=== PATIENT | male | born 1995 | race Caucasian/White ===

== ENCOUNTER 2016-07-19 08:00 | Outpatient (CLI) | payer MEDICAID | END 2016-07-19 08:01 | disposition home or self-care (01) | DX: D52.9 Folate deficiency anemia, unspecified (principal); I10 Essential (primary) hypertension; E11.9 Type 2 diabetes mellitus without complications ==

== ENCOUNTER 2016-12-05 15:18 | Outpatient (CLI) | payer MEDICAID | END 2016-12-05 15:19 | disposition home or self-care (01) | DX: E11.9 Type 2 diabetes mellitus without complications (principal); D53.9 Nutritional anemia, unspecified ==

== ENCOUNTER 2017-06-13 08:00 | Outpatient (CLI) | payer MEDICAID ==
[2017-06-13 13:29] LABS: CALCIUM 9.6 mg/dL (8.5-10.3); CREATININE 0.8 mg/dL (0.6-1.2)
[2017-06-13 13:39] LABS: HEMOGLOBIN A1C 0.95 g/dL
[2017-06-13 13:45] LABS: BASOPHILS % (AUTO) 0.6 %; EOSINOPHILS # (AUTO) 0.1 10^3/uL (0.0-0.7); EOSINOPHILS % (AUTO) 1.5 %; HCT - HEMATOCRIT 38.4 % (42.0-52.0); HGB - HEMOGLOBIN 13.4 g/dL (14.0-18.0); LYMPHOCYTES # (AUTO) 1.9 10^3/uL (1.5-3.5); LYMPHOCYTES % (AUTO) 26.1 %; MEAN CORPUSCULAR HEMOGLOBIN 32.6 pg (27.0-31.0); MEAN CORPUSCULAR HGB CONC 34.9 g/dL (32.0-36.0); MEAN CORPUSCULAR VOLUME 93.4 fL (80.0-94.0); MEAN PLATELET VOLUME 9.3 fL (7.4-11.4); MONOCYTES # (AUTO) 0.4 10^3/uL (0.0-1.0); MONOCYTES % (AUTO) 6.2 %; NEUTROPHILS # (AUTO) 4.7 10^3/uL (1.5-6.6); NEUTROPHILS % (AUTO) 65.6 %; RED BLOOD COUNT 4.12 10^6/uL (4.70-6.10); RED CELL DISTRIBUTION WIDTH 12.9 % (12.0-15.0); UNCORRECTED WHITE BLOOD COUNT 7.2 x10^3/uL; WHITE BLOOD COUNT 7.2 x10^3/uL (4.8-10.8)
== END 2017-06-13 08:01 | disposition home or self-care (01) ==
LOC: LAB.N 08:00
PROVIDERS: ATTEND Family Medicine
DX: E11.9 Type 2 diabetes mellitus without complications (principal); D52.9 Folate deficiency anemia, unspecified
CPT/HCPCS: 36415; 80048; 82746; 83036; 85025

== ENCOUNTER 2018-09-01 15:34 | Outpatient (CLI) | payer MEDICAID ==
[2018-09-01 18:51] LABS: BASOPHILS % (AUTO) 0.3 %; EOSINOPHILS # (AUTO) 0.1 10^3/uL (0.0-0.7); EOSINOPHILS % (AUTO) 1.3 %; HGB - HEMOGLOBIN 13.6 g/dL (14.0-18.0); LYMPHOCYTES # (AUTO) 1.9 10^3/uL (1.5-3.5); LYMPHOCYTES % (AUTO) 22.8 %; MEAN CORPUSCULAR HEMOGLOBIN 31.4 pg (27.0-31.0); MEAN CORPUSCULAR HGB CONC 33.3 g/dL (32.0-36.0); MEAN CORPUSCULAR VOLUME 94.4 fL (80.0-94.0); MEAN PLATELET VOLUME 8.6 fL (7.4-11.4); MONOCYTES # (AUTO) 0.5 10^3/uL (0.0-1.0); MONOCYTES % (AUTO) 5.8 %; NEUTROPHILS # (AUTO) 5.7 10^3/uL (1.5-6.6); NEUTROPHILS % (AUTO) 69.8 %; PLT - PLATELET COUNT 303 10^3/uL (130-450); RED BLOOD COUNT 4.33 10^6/uL (4.70-6.10); RED CELL DISTRIBUTION WIDTH 12.6 % (12.0-15.0); WHITE BLOOD COUNT 8.2 x10^3/uL (4.8-10.8)
[2018-09-01 19:00] LABS: CREATININE 0.6 mg/dL (0.6-1.2)
[2018-09-01 20:43] LABS: HB2 TOTAL 15.1 g/dL; HEMOGLOBIN A1C 1.04 g/dL; HEMOGLOBIN A1C % 8.5 % (4.6-6.2)
== END 2018-09-01 23:59 | disposition home or self-care (01) ==
LOC: LAB.N 15:34
PROVIDERS: ATTEND Physician Assistant Medical
DX: E11.9 Type 2 diabetes mellitus without complications (principal); Z00.00 Encounter for general adult medical examination without abnormal findings; I10 Essential (primary) hypertension
CPT/HCPCS: 36415; 80048; 83036; 85025

== ENCOUNTER 2019-07-08 13:31 | Outpatient (CLI) | payer MEDICAID ==
[2019-07-08 19:09] LABS: HB2 TOTAL 13.7 g/dL; HEMOGLOBIN A1C 0.95 g/dL; HEMOGLOBIN A1C % 8.5 % (4.6-6.2)
== END 2019-07-08 23:59 | disposition home or self-care (01) ==
LOC: LAB.N 13:31
PROVIDERS: ATTEND Physician Assistant Medical
DX: E11.9 Type 2 diabetes mellitus without complications (principal)
CPT/HCPCS: 36415; 83036

== ENCOUNTER 2019-11-08 04:18 | Outpatient (CLI) | payer MEDICAID | END 2019-11-08 04:19 | disposition critical access hospital (66) | LOC: EMS 04:18 | PROVIDERS: ATTEND Surgery | DX: R07.89 Other chest pain (principal); R00.2 Palpitations; R20.2 Paresthesia of skin; R06.4 Hyperventilation | CPT/HCPCS: A0425; A0429 ==

== ENCOUNTER 2019-11-08 04:35 | Emergency (ER) | payer MEDICAID ==
[2019-11-08 04:47] VITALS: BP 155/117
[2019-11-08] MEDS ORDERED: LORazepam 2 MG/ML VIAL IM STA (05:07)
--- NOTE | 2019-11-08 05:18 | ED Physician Documentation ---
History of Present Illness - Stated complaint Stated Complaint: PANIC ATTACK - Chief complaint Chief Complaint: MHE - History obtained from History obtained from: Patient - History of Present Illness Timing: Today - Additonal information Additional information: 24-year-old male with history of type 1 diabetes has developed anxiety acutely related to an emotional event this morning when the bed had to be called to his home to put his dog down. He has a 12-year-old Rottweiler mastiff mix that has become ill over the past several months and this evening after vomiting and defecating blood the vet came to their home and assisted with a peaceful passing. The patient became excessively emotional and eventually he called 911. He has come to the emergency department with a myriad of symptoms consistent with a panic attack. Review of Systems Constitutional: denies: Fever Eyes: denies: Decreased vision Ears: reports: Tinnitus/ringing. denies: Ear pain Nose: denies: Congestion Throat: denies: Sore throat Cardiac: reports: Palpitations. denies: Chest pain / pressure Respiratory: reports: Dyspnea. denies: Cough GI: reports: Nausea. denies: Abdominal Pain, Vomiting : denies: Dysuria, Frequency Skin: reports: Other (spot just above the crack of the buttocks that is draining and painful over the past week.) Psychiatric: reports: Anxiety PD PAST MEDICAL HISTORY - Past Medical History Past Medical History: Yes Cardiovascular: Hypertension Respiratory: Asthma Endocrine/Autoimmune: Type 1 diabetes GI: None : None HEENT: None Psych: None Musculoskeletal: Osteoarthritis Derm: None - Past Surgical History Past Surgical History: Yes HEENT: Tonsil/Adenoidectomy - Present Medications Home Medications: Ambulatory Orders Medication Instructions Recorded Confirmed Insulin Glargine [Lantus] 38 units SUBQ DAILY 03/27/14 08/17/14 Insulin Lispro [Humalog] 10 units SUBQ TIDWM 03/27/14 08/17/14 Losartan [Cozaar] 0 mg ORAL DAILY 03/27/14 08/17/14 Metformin HCl [Fortamet] 500 mg ORAL BID 03/27/14 08/17/14 LORazepam [Ativan] 1 mg PO Q6HR PRN #10 tablet 11/08/19 Sulfamethoxazole/Trimethoprim 1 each PO BID #14 tablet 11/08/19 [Sulfamethoxazole-Tmp Ds Tablet] - Allergies Allergies/Adverse Reactions: Allergies Allergy/AdvReac Type Severity Reaction Status Date / Time morphine Allergy Emesis Verified 03/27/14 10:01 phenobarbital Allergy Hives Verified 03/27/14 10:01 - Social History Does the pt smoke?: No Smoking Status: Never smoker Does the pt drink ETOH?: No Does the pt have substance abuse?: No - Immunizations Immunizations are current?: Yes PD ED PE NORMAL - Vitals Vital signs reviewed: Yes (Tachycardic and hypertensive) - General General: Alert and oriented X 3, Well developed/nourished - HEENT HEENT: Atraumatic, PERRL, EOMI - Neck Neck: Supple, no meningeal sign, No bony TTP - Cardiac Cardiac: RRR (At the time of examination.), No murmur - Respiratory Respiratory: No respiratory distress, Clear bilaterally - Abdomen Abdomen: Soft, Non tender, Non distended, No organomegaly - Back Back: No CVA TTP, No spinal TTP - Derm Derm: Normal color, Warm and dry, No rash, Other (Over the distal lumbar spine area centrally is a fleshy fleshy mass that is draining pus. It is now deflated and tender there is not significant surrounding erythema to suggest cellulitis. The area is about 1 cm round and pedunculated.) - Extremities Extremities: No deformity, No edema - Neuro Neuro: Alert and oriented X 3, chlorinator 2-12 intact, No motor deficit, No sensory deficit, Normal speech Eye Opening: Spontaneous Motor: Obeys Commands Verbal: Oriented GCS Score: 15 - Psych Psych: Normal mood, Normal affect Results - Vitals Vitals: Vital Signs - 24 hr 11/08/19 04:45 Temperature 36.6 C Heart Rate 130 H Respiratory 24 Rate Blood Pressure 155/117 H O2 Saturation 100 Oxygen O2 Source Room air PD MEDICAL DECISION MAKING - ED course Complexity details: reviewed old records, reviewed results, re-evaluated patient, considered differential, d/w patient ED course: 24-year-old male with history of type 1 diabetes with a trusted fashion buyer animal that is fallen ill and had to be put down this morning has become overly emotional with a panic attack. He is treated here in the emergency department with Ativan 1 mg IM. I believe the pedunculated cyst the patient has that it is draining is an infected acrochordon and we will place the patient on some Septra. He may need to have this surgically removed when the inflammation is resolved Departure - Departure Disposition: 01 Home, Self Care Clinical Impression: Grieving, Inflamed acrochordon Condition: Stable Instructions: ED Stress React, ED Grief Reaction, ED Staph Infec Abx Tx Only Follow-Up: Jesse Torres PA-C [Primary Care Provider] - Prescriptions: LORazepam [Ativan] 1 mg PO Q6HR PRN #10 tablet PRN Reason: Anxiety Sulfamethoxazole/Trimethoprim [Sulfamethoxazole-Tmp Ds Tablet] 1 each PO BID #14 tablet
== END 2019-11-08 06:16 | disposition home or self-care (01) ==
LOC: EDUNIT# → ED 04:35
DX: F43.21 Adjustment disorder with depressed mood (principal); F41.0 Panic disorder [episodic paroxysmal anxiety]; L08.9 Local infection of the skin and subcutaneous tissue, unspecified; I10 Essential (primary) hypertension; E10.9 Type 1 diabetes mellitus without complications; Z79.4 Long term (current) use of insulin
CPT/HCPCS: 96372; 99283; J2060

== ENCOUNTER 2020-08-07 08:00 | Outpatient (CLI) | payer MEDICAID ==
[2020-08-07 17:57] LABS: BASOPHILS % (AUTO) 0.4 %; EOSINOPHILS # (AUTO) 0.1 10^3/uL (0.0-0.7); EOSINOPHILS % (AUTO) 1.7 %; HGB - HEMOGLOBIN 13.3 g/dL (14.0-18.0); LYMPHOCYTES # (AUTO) 1.9 10^3/uL (1.5-3.5); MEAN CORPUSCULAR HEMOGLOBIN 31.7 pg (27.0-31.0); MEAN PLATELET VOLUME 10.3 fL (7.4-11.4); MONOCYTES # (AUTO) 0.5 10^3/uL (0.0-1.0); MONOCYTES % (AUTO) 7.1 %; NEUTROPHILS # (AUTO) 4.4 10^3/uL (1.5-6.6); NEUTROPHILS % (AUTO) 63.5 %; PLT - PLATELET COUNT 344 10^3/uL (130-450); RED BLOOD COUNT 4.19 10^6/uL (4.70-6.10); RED CELL DISTRIBUTION WIDTH 12.3 % (12.0-15.0); WHITE BLOOD COUNT 6.9 x10^3/uL (4.8-10.8)
[2020-08-07 18:14] LABS: CREATININE,URINE 240.4 mg/dL; MICROALBUM/CREATININE RATIO,UR 2.9 ug/mg (<30.0); MICROALBUMIN,URINE 0.7 mg/dL (0-300.0)
[2020-08-07 18:17] LABS: ALBUMIN/GLOBULIN RATIO 1.1 (1.0-2.2); ALKALINE PHOSPHATASE 84 IU/L (42-121); ALT ALANINE AMINOTRANSFERASE 30 IU/L (10-60); AST ASPARTATE AMINOTRANSFERASE 24 IU/L (10-42); BILIRUBIN,TOTAL 0.9 mg/dL (0.2-1.0); BUN - BLOOD UREA NITROGEN 10 mg/dL (6-20); CALCIUM 9.2 mg/dL (8.5-10.3); CARBON DIOXIDE - CO2 26 mmol/L (21-32); CHLORIDE 101 mmol/L (101-111); CHOL/HDL RATIO 6.5 (<5.0); CHOLESTEROL 274 mg/dL; CREATININE 0.6 mg/dL (0.6-1.2); GLUCOSE 147 mg/dL (70-100); HDL CHOLESTEROL 42 mg/dL; LDL CHOLESTEROL,CALCULATED 213 mg/dL; LDL/HDL RATIO 5.1 (<3.6); TOTAL PROTEIN 7.5 g/dL (6.7-8.2); VLDL CHOLESTEROL 19 mg/dL
[2020-08-07 20:16] LABS: HEMOGLOBIN A1c% 7.6 % (4.27-6.07)
== END 2020-08-07 23:59 | disposition home or self-care (01) ==
LOC: LAB.WCP 08:00
PROVIDERS: ATTEND Physician Assistant Medical
DX: E10.9 Type 1 diabetes mellitus without complications (principal)
CPT/HCPCS: 36415; 80050; 80061; 82043; 82570; 83036; 83721

== ENCOUNTER 2021-07-31 16:39 | Outpatient (CLI) | payer MEDICAID ==
[2021-07-31 21:45] LABS: BASOPHILS % (AUTO) 0.2 %; EOSINOPHILS # (AUTO) 0.1 10^3/uL (0.0-0.7); EOSINOPHILS % (AUTO) 1.3 %; HCT - HEMATOCRIT 42.8 % (42.0-52.0); HGB - HEMOGLOBIN 14.4 g/dL (14.0-18.0); LYMPHOCYTES # (AUTO) 1.9 10^3/uL (1.5-3.5); LYMPHOCYTES % (AUTO) 23.4 %; MEAN CORPUSCULAR HGB CONC 33.6 g/dL (32.0-36.0); MEAN CORPUSCULAR VOLUME 92.2 fL (80.0-94.0); MEAN PLATELET VOLUME 10.1 fL (7.4-11.4); MONOCYTES # (AUTO) 0.5 10^3/uL (0.0-1.0); MONOCYTES % (AUTO) 6.1 %; NEUTROPHILS # (AUTO) 5.6 10^3/uL (1.5-6.6); NEUTROPHILS % (AUTO) 68.8 %; PLT - PLATELET COUNT 328 10^3/uL (130-450); RED BLOOD COUNT 4.64 10^6/uL (4.70-6.10); RED CELL DISTRIBUTION WIDTH 12.2 % (12.0-15.0); WHITE BLOOD COUNT 8.2 x10^3/uL (4.8-10.8)
[2021-07-31 22:03] LABS: % IRON SATURATION 31 % (20-50); ALBUMIN 4.2 g/dL (3.2-5.5); ALBUMIN/GLOBULIN RATIO 1.2 (1.0-2.2); ALKALINE PHOSPHATASE 90 IU/L (42-121); ALT ALANINE AMINOTRANSFERASE 41 IU/L (10-60); AST ASPARTATE AMINOTRANSFERASE 30 IU/L (10-42); BILIRUBIN,TOTAL 0.6 mg/dL (0.2-1.0); BUN - BLOOD UREA NITROGEN 9 mg/dL (6-20); CALCIUM 9.4 mg/dL (8.5-10.3); CARBON DIOXIDE - CO2 29 mmol/L (21-32); CHLORIDE 98 mmol/L (101-111); CHOL/HDL RATIO 6.5 (<5.0); CHOLESTEROL 234 mg/dL; CREATININE 0.7 mg/dL (0.6-1.2); GFR - MDRD 135 (>89); GLUCOSE 261 mg/dL (70-100); HDL CHOLESTEROL 36 mg/dL; IRON 126 ug/dL (45-182); LDL CHOLESTEROL,CALCULATED 165 mg/dL; LDL/HDL RATIO 4.6 (<3.6); POTASSIUM 4.3 mmol/L (3.5-5.0); SODIUM 136 mmol/L (135-145); TOTAL IRON BINDING CAPACITY 402 ug/dL (250-450); TOTAL PROTEIN 7.6 g/dL (6.7-8.2); TRANSFERRIN 287 mg/dL (180-329); TRIGLYCERIDES 166 mg/dL; VLDL CHOLESTEROL 33 mg/dL
[2021-07-31 23:02] LABS: FERRITIN 54.4 ng/mL (23.9-336.2)
[2021-07-31 23:05] LABS: FOLATE 18.1 ng/mL (5.90 - >24.8)
[2021-08-01 10:31] LABS: ESTIMATED AVERAGE GLUCOSE 220 mg/dL (70-100); HEMOGLOBIN A1c% 9.3 % (4.27-6.07)
== END 2021-07-31 16:40 | disposition home or self-care (01) ==
LOC: LAB.N 16:39
PROVIDERS: ATTEND Physician Assistant Medical
DX: E10.9 Type 1 diabetes mellitus without complications (principal); D64.9 Anemia, unspecified
CPT/HCPCS: 36415; 80053; 80061; 82607; 82728; 82746; 82747; 83036; 83540; 83721; 84466; 85025

== ENCOUNTER 2021-12-01 03:50 | Emergency (ER) | payer MEDICAID ==
[2021-12-01] MEDS ORDERED: SODIUM CHLORIDE 0.9% 1,000 ML IV STA (04:36)
[2021-12-01 04:43] LABS: BASOPHILS % (AUTO) 0.4 %; EOSINOPHILS # (AUTO) 0.2 10^3/uL (0.0-0.7); EOSINOPHILS % (AUTO) 2.2 %; HCT - HEMATOCRIT 36.4 % (42.0-52.0); HGB - HEMOGLOBIN 12.5 g/dL (14.0-18.0); LYMPHOCYTES # (AUTO) 3.2 10^3/uL (1.5-3.5); LYMPHOCYTES % (AUTO) 28.8 %; MEAN CORPUSCULAR HEMOGLOBIN 31.8 pg (27.0-31.0); MEAN CORPUSCULAR HGB CONC 34.3 g/dL (32.0-36.0); MEAN CORPUSCULAR VOLUME 92.6 fL (80.0-94.0); MONOCYTES # (AUTO) 0.8 10^3/uL (0.0-1.0); MONOCYTES % (AUTO) 7.3 %; NEUTROPHILS # (AUTO) 6.7 10^3/uL (1.5-6.6); PLT - PLATELET COUNT 321 10^3/uL (130-450); RED BLOOD COUNT 3.93 10^6/uL (4.70-6.10); RED CELL DISTRIBUTION WIDTH 12.3 % (12.0-15.0)
[2021-12-01 04:51] LABS: ALBUMIN 3.8 g/dL (3.2-5.5); ALBUMIN/GLOBULIN RATIO 1.1 (1.0-2.2); BILIRUBIN,TOTAL 0.3 mg/dL (0.2-1.0); CREATININE 0.6 mg/dL (0.6-1.2); POTASSIUM 3.4 mmol/L (3.5-5.0); TOTAL PROTEIN 7.2 g/dL (6.7-8.2)
--- NOTE | 2021-12-01 04:56 | ED Physician Documentation ---
PD HPI ABD PAIN - Stated complaint Stated Complaint: BODY PX - Chief complaint Chief Complaint: Abd Pain - History obtained from History obtained from: Patient - History of Present Illness Timing - onset: How many days ago (3) Timing - duration: Days (3) Timing - details: Gradual onset, Still present Quality: Sharp, Pain Location: RUQ Radiation: Right flank Improved by: Meds Worsened by: Other (nothing) Associated symptoms: No: Fever, Nausea, Vomiting Similar symptoms before: Diagnosis (kidney stone) Recently seen: Not recently seen - Additional information Additional information: Henrry Breen is a 26-year-old male type I diabetic who has had kidney stone previously and he is now developed a pain in the right flank that has responded to Tylenol and Advil. The patient did not take any Tylenol or Advil last night when he went to bed and he awoke early this morning with worsening pain and has come to the emergency department for evaluation. Review of Systems Constitutional: denies: Fever Nose: denies: Rhinorrhea / runny nose, Congestion Throat: denies: Sore throat Respiratory: denies: Cough GI: reports: Abdominal Pain. denies: Nausea, Vomiting : denies: Dysuria, Frequency Skin: denies: Rash Musculoskeletal: reports: Back pain. denies: Neck pain, Extremity pain PD PAST MEDICAL HISTORY - Past Medical History Cardiovascular: Hypertension Respiratory: Asthma Endocrine/Autoimmune: Type 1 diabetes GI: None : None HEENT: None Psych: None Musculoskeletal: Osteoarthritis Derm: None - Past Surgical History Past Surgical History: Yes HEENT: Tonsil/Adenoidectomy - Present Medications Home Medications: Ambulatory Orders Medication Instructions Recorded Confirmed Insulin Glargine [Lantus] 38 units SUBQ DAILY 03/27/14 08/17/14 Insulin Lispro [Humalog] 10 units SUBQ TIDWM 03/27/14 08/17/14 Losartan [Cozaar] 0 mg ORAL DAILY 03/27/14 08/17/14 Metformin HCl [Fortamet] 500 mg ORAL BID 03/27/14 08/17/14 LORazepam [Ativan] 1 mg PO Q6HR PRN #10 tablet 11/08/19 Sulfamethoxazole/Trimethoprim 1 each PO BID #14 tablet 11/08/19 [Sulfamethoxazole-Tmp Ds Tablet] - Allergies Allergies/Adverse Reactions: Allergies Allergy/AdvReac Type Severity Reaction Status Date / Time morphine Allergy Emesis Verified 03/27/14 10:01 phenobarbital Allergy Hives Verified 03/27/14 10:01 - Social History Does the pt smoke?: No Smoking Status: Never smoker Does the pt drink ETOH?: No Does the pt have substance abuse?: No - Immunizations Immunizations are current?: Yes PD ED PE NORMAL - Vitals Vital signs reviewed: Yes (Tachycardic and hypertensive) - General General: Alert and oriented X 3, No acute distress, Well developed/nourished - HEENT HEENT: Atraumatic, PERRL, EOMI - Neck Neck: Supple, no meningeal sign, No bony TTP - Cardiac Cardiac: RRR, No murmur - Respiratory Respiratory: No respiratory distress, Clear bilaterally - Abdomen Abdomen: Normal bowel sounds, Soft, Non tender, Non distended, No organomegaly - Back Back: No CVA TTP, No spinal TTP - Derm Derm: Normal color, Warm and dry, No rash - Extremities Extremities: No deformity, No edema - Neuro Neuro: Alert and oriented X 3, order desk caller 2-12 intact, No motor deficit, No sensory deficit, Normal speech Eye Opening: Spontaneous Motor: Obeys Commands Verbal: Oriented GCS Score: 15 - Psych Psych: Normal mood, Normal affect Results - Vitals Vitals: Vital Signs - 24 hr 12/01/21 12/01/21 12/01/21 03:55 06:10 06:23 Temperature 36.6 C Heart Rate 118 H 92 84 Respiratory 20 22 20 Rate Blood Pressure 135/100 H 174/105 H 187/102 H O2 Saturation 100 96 99 Oxygen O2 Source Room air - Labs Labs: Laboratory Tests 12/01/21 12/01/21 12/01/21 04:15 04:15 05:25 WBC 11.0 H RBC 3.93 L Hgb 12.5 L Hct 36.4 L MCV 92.6 MCH 31.8 H MCHC 34.3 RDW 12.3 Plt Count 321 MPV 10.0 Neut # (Auto) 6.7 H Lymph # (Auto) 3.2 [place] # (Auto) 0.8 Eos # (Auto) 0.2 Baso # (Auto) 0.0 Absolute Nucleated RBC 0.00 Nucleated RBC % 0.0 Sodium 138 Potassium 3.4 L Chloride 103 Carbon Dioxide 22 Anion Gap 13.0 BUN 11 Creatinine 0.6 Estimated GFR (MDRD) 160 Glucose 150 H POC Whole Bld Glucose Calcium 9.0 Total Bilirubin 0.3 AST 36 ALT 40 Alkaline Phosphatase 71 Total Protein 7.2 Albumin 3.8 Globulin 3.4 Albumin/Globulin Ratio 1.1 Lipase 30 Urine Color YELLOW Urine Clarity CLEAR Urine pH 6.0 Ur Specific [place] 1.010 Urine Protein NEGATIVE Urine Glucose (UA) NEGATIVE Urine Ketones NEGATIVE Urine Occult Blood MODERATE H Urine Nitrite NEGATIVE Urine Bilirubin NEGATIVE Urine Urobilinogen 0.2 (NORMAL) Ur Leukocyte Esterase NEGATIVE Urine RBC 6-10 H Urine WBC 0-3 Ur Squamous Epith Cells FEW Squamous Urine Bacteria Rare Ur Microscopic Review INDICATED Urine Culture Comments NOT INDICATED 12/01/21 06:02 WBC RBC Hgb Hct MCV MCH MCHC RDW Plt Count MPV Neut # (Auto) Lymph # (Auto) [place] # (Auto) Eos # (Auto) Baso # (Auto) Absolute Nucleated RBC Nucleated RBC % Sodium Potassium Chloride Carbon Dioxide Anion Gap BUN Creatinine Estimated GFR (MDRD) Glucose POC Whole Bld Glucose 68 L Calcium Total Bilirubin AST ALT Alkaline Phosphatase Total Protein Albumin Globulin Albumin/Globulin Ratio Lipase Urine Color Urine Clarity Urine pH Ur Specific [place] Urine Protein Urine Glucose (UA) Urine Ketones Urine Occult Blood Urine Nitrite Urine Bilirubin Urine Urobilinogen Ur Leukocyte Esterase Urine RBC Urine WBC Ur Squamous Epith Cells Urine Bacteria Ur Microscopic Review Urine Culture Comments - Rads (name of study) CT abdomen pelvis without Radiology: Prelim report reviewed (Impression: 1. 1 mm distal right ureteral calculus with mild right hydro ureteral nephrosis. Nonobstructing left nephrolithiasis.), EMP read indepedently, See rad report Procedures - Bedside sono Bedside sono by EMP: With use bedside ultrasound the right kidney is imaged it is sonographically nontender and there is evidence of obvious hydronephrosis. PD MEDICAL DECISION MAKING - ED course Complexity details: reviewed old records, reviewed results, re-evaluated patient, considered differential, d/w patient ED course: 26-year-old male thought he had a kidney stone and has a kidney stone. The stone is small and should pass without issue. The patient is administered intravenous saline here in the emergency department he did not require pain medication. Departure - Departure Disposition: 01 Home, Self Care Clinical Impression: Ureterolithiasis Instructions: ED Stone Renal W Colic Follow-Up: Laurie Padilla PA-C [Provider Admit Priv/Credential] - Comments: Henrry, today it looks like you have a 1 mm stone that is just ready to pass. Drink extra fluids to encourage it to pass and expect resolution of your pain this week.
[2021-12-01 05:51] LABS: BILIRUBIN,URINE NEGATIVE (NEGATIVE); GLUCOSE, URINE (UA) NEGATIVE (NEGATIVE); KETONES,URINE (UA) NEGATIVE (NEGATIVE); LEUKOCYTE ESTERASE, URINE NEGATIVE (NEGATIVE); NITRITE,URINE NEGATIVE (NEGATIVE); OCCULT BLOOD,URINE MODERATE (NEGATIVE); PROTEIN,URINE NEGATIVE (NEGATIVE); UROBILINOGEN,URINE 0.2 (NORMAL) E.U./dL (NORMAL)
[2021-12-01 05:57] LABS: CLARITY,URINE CLEAR (CLEAR)
[2021-12-01 06:10] LABS: BACTERIA,URINE Rare /HPF (None Seen); SQUAMOUS EPITHELIAL CELL,UR FEW Squamous (<= Few); WBC,URINE 0-3 /HPF (0-3)
[2021-12-01 06:24] VITALS: BP 187/102
--- NOTE | 2021-12-01 08:48 | CT Report ---
PROCEDURE: Abdomen/Pelvis WO INDICATIONS: R flank pain TECHNIQUE: Noncontrast 5 mm thick sections acquired from the diaphragms to the symphysis. 5 mm coronal and sagi ttal reformats were then performed. For radiation dose reduction, the following was used: automated exposure control, adjustment of mA and/or kV according to patient size. COMPARISON: None. FINDINGS: Image quality: Excellent. ABDOMEN: Lung bases: Lung bases are clear. Heart size is normal. Solid organs: Liver and spleen are normal in size. Gallbladder is unremarkable Pancreas is normal in contours. No adrenal nodules. Kidneys are normal in size. There is a punctate calcification with in the distal right ureter approximately 1 cm proximal to the ureterovesicular junction. There is min imal to mild right hydronephrosis and hydroureter. Questionable punctate nonobstructing left renal ca lculus. Peritoneum and bowel: Unenhanced bowel loops demonstrate normal wall thickness and caliber. No free fluid or air. Appendix is normal. Nodes and vessels: No retroperitoneal or mesenteric adenopathy by size criteria. Aorta and inferior vena cava are normal in caliber. Miscellaneous: Trace fat-containing ventral hernia is present. PELVIS: Genitourinary: Bladder wall thickness is normal. Miscellaneous: No inguinal hernias or adenopathy. Bones: No suspicious bony lesions. No vertebral body compression fractures. IMPRESSION: Minimal to mild right hydronephrosis and hydroureter with punctate calcification in the distal right ureter as above. The above findings are concordant with preliminary report. Reviewed by: Karen Carrillo MD on 12/01/2021 8:46 AM PDT Approved by: Karen Carrillo MD on 12/01/2021 8:46 AM PDT Station ID: [id number]
== END 2021-12-01 06:39 | disposition home or self-care (01) ==
LOC: ED 03:50
DX: N13.2 Hydronephrosis with renal and ureteral calculous obstruction (principal); I10 Essential (primary) hypertension; E10.9 Type 1 diabetes mellitus without complications; Z79.4 Long term (current) use of insulin
CPT/HCPCS: 36415; 80053; 81001; 81003; 83690; 85025; 87086; 99284

== ENCOUNTER 2022-03-15 19:53 | Emergency (ER) | payer MEDICAID ==
[2022-03-15] MEDS ORDERED: LIDOCAINE PATCH 5% TOP STA (22:54)
[2022-03-15] MEDS ORDERED: KETOROLAC 60 MG/2 ML VIAL IM STA (22:54)
[2022-03-15] MEDS ORDERED: CYCLOBENZAPRINE 10 MG Prepack 2 PO PRN (22:55)
--- NOTE | 2022-03-15 23:18 | ED Physician Documentation ---
PD HPI BACK PAIN - Stated complaint Stated Complaint: BACK PAIN - Chief complaint Chief Complaint: Back Pain - History obtained from History obtained from: Patient - Additional information Additional information: Patient presenting for evaluation of left-sided lumbar pain for 5 days. The pain is sharp and aching. It is worse with certain movements. Patient reports that he was walking their [place] several days ago when the dog was pulling and believes that this has triggered this episode. He does have a history of back pain related to injuries from playing high school sports. He denies any recent falls. He has been using acetaminophen and ibuprofen with some improvement. He feels the muscle area is tight. He denies any lower extremity pain or tingling, saddle anesthesia, bowel or bladder incontinence. He denies fever, IV drug use, spinal injections. Review of Systems Constitutional: denies: Fever Nose: denies: Congestion Cardiac: denies: Chest pain / pressure Respiratory: denies: Dyspnea GI: denies: Abdominal Pain : denies: Dysuria, Hematuria Musculoskeletal: reports: Back pain. denies: Neck pain Neurologic: denies: Headache, Head injury PD PAST MEDICAL HISTORY - Past Medical History Cardiovascular: Hypertension Respiratory: Asthma Endocrine/Autoimmune: Type 1 diabetes GI: None : None HEENT: None Psych: None Musculoskeletal: Osteoarthritis Derm: None - Past Surgical History Past Surgical History: Yes HEENT: Tonsil/Adenoidectomy - Present Medications Home Medications: Ambulatory Orders Medication Instructions Recorded Confirmed Insulin Glargine [Lantus] 38 units SUBQ DAILY 03/27/14 08/17/14 Insulin Lispro [Humalog] 10 units SUBQ TIDWM 03/27/14 08/17/14 Losartan [Cozaar] 0 mg ORAL DAILY 03/27/14 08/17/14 Metformin HCl [Fortamet] 500 mg ORAL BID 03/27/14 08/17/14 LORazepam [Ativan] 1 mg PO Q6HR PRN #10 tablet 11/08/19 Sulfamethoxazole/Trimethoprim 1 each PO BID #14 tablet 11/08/19 [Sulfamethoxazole-Tmp Ds Tablet] Cyclobenzaprine [Flexeril] 10 mg PO TID PRN #20 tablet 03/15/22 - Allergies Allergies/Adverse Reactions: Allergies Allergy/AdvReac Type Severity Reaction Status Date / Time morphine Allergy Emesis Verified 03/15/22 20:14 phenobarbital Allergy Hives Verified 03/15/22 20:14 - Social History Does the pt smoke?: No Smoking Status: Never smoker Does the pt drink ETOH?: No Does the pt have substance abuse?: No - Immunizations Immunizations are current?: Yes PD ED PE NORMAL - General General: Alert and oriented X 3, No acute distress, Well developed/nourished - HEENT HEENT: Atraumatic - Neck Neck: Supple, no meningeal sign, No bony TTP - Cardiac Cardiac: RRR, No murmur, Strong equal pulses - Respiratory Respiratory: No respiratory distress, Clear bilaterally - Abdomen Abdomen: Normal bowel sounds, Soft, Non tender, Non distended - Back Back: No spinal TTP - Derm Derm: Warm and dry - Extremities Extremities: No edema, Other (Pedal pulses present) - Neuro Neuro: No motor deficit, No sensory deficit PD ED PE EXPANDED - Back Back visual: 1 - tenderness Results - Vitals Vitals: Vital Signs - 24 hr 03/15/22 03/15/22 20:09 23:49 Temperature 36.6 C Heart Rate 88 86 Respiratory 18 18 Rate Blood Pressure 141/100 H 115/86 H O2 Saturation 100 100 Oxygen O2 Source Room air PD MEDICAL DECISION MAKING - ED course Complexity details: re-evaluated patient, d/w patient, d/w family ED course: Patient presenting for evaluation of back pain. No reported trauma other than dog pulling while he was walking it. Has reproducible tenderness on exam. No symptoms to suggest stone or urinary tract infection. No fever and normal neuro exam. Doubt abscess or hematoma. Patient feeling better with medications here. He is ambulatory and comfortable with plan for discharge. Departure - Departure Disposition: 01 Home, Self Care Clinical Impression: Back muscle spasm Condition: Stable Instructions: ED Low Back Pain Injury, ED Spasm Back No Trauma Prescriptions: Cyclobenzaprine [Flexeril] 10 mg PO TID PRN #20 tablet PRN Reason: Spasms Comments: You were evaluated for pain to your back from a recent strain injury. It appears that you have a spasm to the muscles of your back. I have prescribed a medication called Flexeril which should help with this. I would continue with anti-inflammatories such as acetaminophen or ibuprofen as well as lidocaine patches. I have sent your prescription to [facility] in [place]. You may also want to try ice or heat. Please return to the ER if you have any worsening symptoms. Discharge Date/Time: 03/15/22 23:49
[2022-03-15 23:50] VITALS: BP 115/86
== END 2022-03-15 23:49 | disposition home or self-care (01) ==
LOC: ED 19:53
DX: M62.830 Muscle spasm of back (principal); I10 Essential (primary) hypertension; E10.9 Type 1 diabetes mellitus without complications; Z79.4 Long term (current) use of insulin
CPT/HCPCS: 96372; 99282; 99283; A9270

== ENCOUNTER 2022-03-17 01:10 | Emergency (ER) | payer MEDICAID ==
[2022-03-17] MEDS: SODIUM CHLORIDE 0.9% 1,000 ML IV STA (02:03)
[2022-03-17] MEDS: HYDROmorphone 1 MG/ML CARPUJECT IVP STA ×2 (02:03→03:13)
[2022-03-17] MEDS: ONDANSETRON 4 MG/2 ML VIAL IVP STA (02:03)
--- NOTE | 2022-03-17 02:04 | ED Physician Documentation ---
PD HPI BACK PAIN - Stated complaint Stated Complaint: BACK PAIN - Chief complaint Chief Complaint: Back Pain - History obtained from History obtained from: Patient - Additional information Additional information: Patient is a 26-year-old male presenting for evaluation of left flank pain and that is been present for 5 days. It is sharp and aching. He believes it started after he was walking his large dog and it pulled on him. He was seen yesterday in the emergency department for similar symptoms and had improvement with Flexeril and Toradol. He has continued to use acetaminophen and Flexeril with some improvement but this evening the pain worsened and he reported an episode of emesis. He does have a history of kidney stones but feels this is different. The pain does migrate to hisLeft side. He denies dysuria or hematuria. He denies diarrhea or constipation. He denies chest pain or difficulty breathing. No fevers, spinal injections, bladder or bowel incontinence, lower extremity pain. Review of Systems Constitutional: denies: Fever Cardiac: denies: Chest pain / pressure Respiratory: denies: Dyspnea GI: reports: Nausea, Vomiting. denies: Abdominal Pain : denies: Dysuria, Hematuria Musculoskeletal: reports: Back pain Neurologic: denies: Headache PD PAST MEDICAL HISTORY - Past Medical History Cardiovascular: Hypertension Respiratory: Asthma Endocrine/Autoimmune: Type 1 diabetes GI: None : None HEENT: None Psych: None Musculoskeletal: Osteoarthritis Derm: None - Past Surgical History Past Surgical History: Yes HEENT: Tonsil/Adenoidectomy - Present Medications Home Medications: Ambulatory Orders Medication Instructions Recorded Confirmed Insulin Glargine [Lantus] 38 units SUBQ DAILY 03/27/14 03/17/22 Insulin Lispro [Humalog] 10 units SUBQ TIDWM 03/27/14 03/17/22 Cyclobenzaprine [Flexeril] 10 mg PO TID PRN #20 tablet 03/15/22 03/17/22 Escitalopram [Lexapro] 10 mg PO DAILY 03/17/22 03/17/22 Lisinopril [Zestril] 20 mg PO DAILY 03/17/22 03/17/22 Ondansetron Odt [Zofran] 4 mg TL Q6H PRN #10 tablet 03/17/22 Oxycodone HCl/Acetaminophen 1 - 2 each PO Q6H PRN #14 tablet 03/17/22 [Percocet 5-325 mg Tablet] - Allergies Allergies/Adverse Reactions: Allergies Allergy/AdvReac Type Severity Reaction Status Date / Time morphine Allergy Emesis Verified 03/17/22 01:25 phenobarbital Allergy Hives Verified 03/17/22 01:25 - Social History Does the pt smoke?: No Smoking Status: Never smoker Does the pt drink ETOH?: No Does the pt have substance abuse?: No - Immunizations Immunizations are current?: Yes PD ED PE NORMAL - General General: Alert and oriented X 3, No acute distress, Well developed/nourished - HEENT HEENT: Atraumatic, Moist mucous membranes - Neck Neck: Supple, no meningeal sign, No bony TTP - Cardiac Cardiac: RRR, No murmur, Strong equal pulses - Respiratory Respiratory: No respiratory distress, Clear bilaterally - Abdomen Abdomen: Normal bowel sounds, Soft, Non distended, Other (Mild left upper quadrant tenderness no rebound no guarding) - Back Back: No spinal TTP. No: No CVA TTP (Left flank tenderness to palpation) - Derm Derm: Warm and dry - Extremities Extremities: No edema - Neuro Neuro: Alert and oriented X 3, No motor deficit, Normal speech Results - Vitals Vitals: Vital Signs - 24 hr 03/17/22 03/17/22 03/17/22 01:20 02:16 03:50 Temperature 36.4 C L 36.5 C Heart Rate 111 H 76 86 Respiratory 18 16 16 Rate Blood Pressure 162/94 H 131/88 H 140/90 H O2 Saturation 98 100 100 Oxygen O2 Source Room air - Labs Labs: Laboratory Tests 03/17/22 03/17/22 03/17/22 01:57 01:57 01:57 WBC 13.6 H RBC 3.60 L Hgb 11.3 L Hct 34.2 L MCV 95.0 H MCH 31.4 H MCHC 33.0 RDW 12.3 Plt Count 276 MPV 9.1 Neut # (Auto) 11.0 H Lymph # (Auto) 1.6 Eagle # (Auto) 0.8 Eos # (Auto) 0.1 Baso # (Auto) 0.0 Absolute Nucleated RBC 0.00 Nucleated RBC % 0.0 Sodium 138 Potassium 3.9 Chloride 103 Carbon Dioxide 24 Anion Gap 11.0 BUN 14 Creatinine 0.7 Estimated GFR (MDRD) 134 Glucose 164 H Lactic Acid 1.6 Calcium 9.4 Total Bilirubin 0.7 AST 30 ALT 42 Alkaline Phosphatase 85 Total Protein 7.3 Albumin 3.6 Globulin 3.7 Albumin/Globulin Ratio 1.0 Lipase 23 PD MEDICAL DECISION MAKING - ED course Complexity details: reviewed results, re-evaluated patient, d/w patient, d/w family ED course: Patient evaluated for left flank pain. Is slightly tachycardic upon arrival but otherwise reassuring vital signs. Patient does report a mechanism that which could have caused injury but pain has worsened over the last day. He does have a history of stones therefore imaging was obtained and labs. CT is negative for ureter stone. Labs reviewed without significant abnormalities. Patient is feeling better with medication here. No midline tenderness . Normal neuro exam.. No fever. No signs of cellulitis or abscess.Patient is ambulatory and comfortable plan for discharge. Advised on return precautions. Departure - Departure Disposition: Home, Self Care Clinical Impression: Left flank pain Condition: Stable Instructions: ED Flank Pain Uncertain Cause Prescriptions: Oxycodone HCl/Acetaminophen [Percocet 5-325 mg Tablet] 1 - 2 each PO Q6H PRN #14 tablet PRN Reason: pain Ondansetron Odt [Zofran] 4 mg TL Q6H PRN #10 tablet PRN Reason: Nausea / Vomiting Comments: You were evaluated for pain to your left flank. A CT scan Did not show any significant findings. Your labs were overall reassuring. The exact cause of your pain is unclear. It could be related to muscle strain and spasm Given the history you provided. Please continue with the medications you are previously prescribed. I will also send a prescription for a stronger pain medication and nausea medication to [facility] in [place]. I am prescribing a short course of narcotic pain medication for you. These are potentially dangerous and addictive medications that should be used carefully. These medications may constipate you. Take an [id number] stool softener (docusate) twice daily with plenty of water while taking these medications. If you go 24 hours without a bowel movement, take [id number] miralax, per package instructions. Do not drink or drive while taking these medications. If you received narcotic or sedating medications while in the emergency department, do not drive for 24 hours. Store this medication in a safe, secure place and out of reach of children. It is a violation of federal law to give or sell this medication to another person or to use in a manner other than prescribed. The ED will not refill narcotic prescriptions, including prescriptions lost or stolen. To dispose of unwanted medications: 1. [facility] at [address] in [place] has a medication drop box. They accept prescription medications (in pill form) Friday through Friday 9:00 a.m. to 5:00 p.m. 2. [facility] [employer] [facility] accepts prescription medications (in pill form only) for disposal year round. Call for more information. 3. Contact the [facility] for the next [facility] sponsored prescription drug collection event. , [phone], or [phone]; Note that many narcotic pain relievers also contain Tylenol/acetaminophen. Please ensure that your total dose of acetaminophen from all sources does not exceed 3 g (3000 mg) per day.
[2022-03-17 02:08] LABS: BASOPHILS % (AUTO) 0.3 %; EOSINOPHILS # (AUTO) 0.1 10^3/uL (0.0-0.7); HCT - HEMATOCRIT 34.2 % (42.0-52.0); HGB - HEMOGLOBIN 11.3 g/dL (14.0-18.0); LYMPHOCYTES # (AUTO) 1.6 10^3/uL (1.5-3.5); LYMPHOCYTES % (AUTO) 11.4 %; MEAN CORPUSCULAR HEMOGLOBIN 31.4 pg (27.0-31.0); MEAN PLATELET VOLUME 9.1 fL (7.4-11.4); MONOCYTES # (AUTO) 0.8 10^3/uL (0.0-1.0); MONOCYTES % (AUTO) 6.2 %; NEUTROPHILS % (AUTO) 80.8 %; PLT - PLATELET COUNT 276 10^3/uL (130-450); RED CELL DISTRIBUTION WIDTH 12.3 % (12.0-15.0); WHITE BLOOD COUNT 13.6 x10^3/uL (4.8-10.8)
--- NOTE | 2022-03-17 02:11 | CT Report ---
PROCEDURE: Abdomen/Pelvis WO INDICATIONS: L flank pain TECHNIQUE: Noncontrast 5 mm thick sections acquired from the diaphragms to the symphysis. 5 mm coronal and sagi ttal reformats were then performed. For radiation dose reduction, the following was used: automated exposure control, adjustment of mA and/or kV according to patient size. COMPARISON: CT KUB 12/01/2021. FINDINGS: Image quality: Excellent. ABDOMEN: Lung bases: Lung bases are clear. Heart size is normal. Solid organs: Liver and spleen are normal in size. Small splenule. Gallbladder is unremarkable. Orozco creas is normal in contours. No adrenal nodules. Kidneys are normal in size, without hydronephrosis . Punctate nonobstructing left kidney stone is unchanged. The previously seen obstructing calculus at the right UVJ on CT 12/01/2021 is no longer present. Peritoneum and bowel: Unenhanced bowel loops demonstrate normal wall thickness and caliber. The appe ndix is not dilated. No free fluid or air. Nodes and vessels: No retroperitoneal or mesenteric adenopathy by size criteria. Aorta and inferior vena cava are normal in caliber. Miscellaneous: No ventral hernias. PELVIS: Genitourinary: Bladder wall thickness is normal. The bladder stone. Miscellaneous: No inguinal hernias or adenopathy. Bones: No suspicious bony lesions. No vertebral body compression fractures. Lateral L5 pars defect . IMPRESSION: 1. No obstructing calculus demonstrated. No hydronephrosis. 2. Punctate nonobstructing left kidney stone is unchanged. 3. No free fluid. Reviewed by: Vernon Vasquez MD on 03/17/2022 2:09 AM PDT Approved by: Vernon Vasquez MD on 03/17/2022 2:09 AM PDT Station ID: [id number]
[2022-03-17 02:20] LABS: ALBUMIN 3.6 g/dL (3.2-5.5); BILIRUBIN,TOTAL 0.7 mg/dL (0.2-1.0); CALCIUM 9.4 mg/dL (8.5-10.3); CREATININE 0.7 mg/dL (0.6-1.2); POTASSIUM 3.9 mmol/L (3.5-5.0); TOTAL PROTEIN 7.3 g/dL (6.7-8.2)
[2022-03-17] MEDS: oxyCODONE/ACET 5/325 Prepack 4 PO STA (03:12)
[2022-03-17] MEDS: ONDANSETRON ODT 4 MG Prepack 2 TL PRN (03:13)
[2022-03-17] MEDS: KETOROLAC 30 MG/ML VIAL IVP STA (03:13)
[2022-03-17 03:51] VITALS: BP 140/90
== END 2022-03-17 03:57 | disposition home or self-care (01) ==
LOC: ED 01:10
DX: R10.9 Unspecified abdominal pain (principal); I10 Essential (primary) hypertension; E10.9 Type 1 diabetes mellitus without complications; Z79.4 Long term (current) use of insulin
CPT/HCPCS: 36415; 74176; 80053; 83605; 83690; 85025; 96374; 96375; 96376; 99284; J1170

== ENCOUNTER 2022-07-01 10:40 | Outpatient (CLI) | payer MEDICAID ==
[2022-07-01 11:22] LABS: ALBUMIN 4.1 g/dL (3.2-5.5); ALBUMIN/GLOBULIN RATIO 1.1 (1.0-2.2); ALKALINE PHOSPHATASE 80 IU/L (42-121); ALT ALANINE AMINOTRANSFERASE 33 IU/L (10-60); AST ASPARTATE AMINOTRANSFERASE 22 IU/L (10-42); BILIRUBIN,TOTAL 0.8 mg/dL (0.2-1.0); BUN - BLOOD UREA NITROGEN 14 mg/dL (6-20); CALCIUM 9.3 mg/dL (8.5-10.3); CARBON DIOXIDE - CO2 25 mmol/L (21-32); CHLORIDE 99 mmol/L (101-111); CHOLESTEROL 266 mg/dL; CREATININE 0.7 mg/dL (0.6-1.2); GFR - MDRD 134 (>89); GLUCOSE 219 mg/dL (70-100); HDL CHOLESTEROL 38 mg/dL; LDL CHOLESTEROL,CALCULATED 165 mg/dL; LDL/HDL RATIO 4.3 (<3.6); POTASSIUM 4.2 mmol/L (3.5-5.0); SODIUM 133 mmol/L (135-145); TOTAL PROTEIN 7.7 g/dL (6.7-8.2); TRIGLYCERIDES 316 mg/dL; VLDL CHOLESTEROL 63 mg/dL
[2022-07-01 11:40] LABS: ESTIMATED AVERAGE GLUCOSE 194 mg/dL (70-100); HEMOGLOBIN A1c% 8.4 % (4.27-6.07)
== END 2022-07-01 10:41 | disposition home or self-care (01) ==
LOC: LAB 10:40
PROVIDERS: ATTEND Physician Assistant Medical
DX: E10.9 Type 1 diabetes mellitus without complications (principal)
CPT/HCPCS: 36415; 80053; 80061; 83036; 83721

== ENCOUNTER 2023-03-03 12:43 | Outpatient (CLI) | payer MEDICAID ==
[2023-03-03 13:22] LABS: CALCIUM 10.1 mg/dL (8.5-10.3); CREATININE 0.7 mg/dL (0.6-1.3); POTASSIUM 4.2 mmol/L (3.5-4.5)
[2023-03-03 13:30] LABS: ESTIMATED AVERAGE GLUCOSE 171 mg/dL (70-100); HEMOGLOBIN A1c% 7.6 % (4.27-6.07)
--- NOTE | 2023-03-03 16:36 | XRAY Report ---
PROCEDURE: Knee 3 View BILAT INDICATIONS: KNEE PAIN, BILATERAL TECHNIQUE: 3 views of the right and left knee(s) were acquired. COMPARISON: None. FINDINGS: Bones: No acute fracture or dislocation identified. Mild joint space narrowing. Tricompartmental rig ht knee and medial and patellofemoral compartments left knee. Soft tissues: No knee joint effusion. No suspicious soft tissue calcifications . IMPRESSION: No acute bony abnormality. If there remains a high clinical concern for fracture, consider cross-sect ional imaging now. If pain persists, consider repeat x-ray in 10-14 days or cross-sectional imaging. Degenerative changes of both knees. Reviewed by: Jason Archer MD on 03/03/2023 4:35 PM PDT Approved by: Jason Archer MD on 03/03/2023 4:35 PM PDT Station ID: [id number]
== END 2023-03-03 12:44 | disposition home or self-care (01) ==
LOC: DI 12:43
PROVIDERS: ATTEND Physician Assistant Medical
DX: M17.0 Bilateral primary osteoarthritis of knee (principal)
CPT/HCPCS: 36415; 80048; 83036

== ENCOUNTER 2023-06-13 13:58 | Outpatient (CLI) | payer MEDICAID ==
[2023-06-13 17:51] LABS: BASOPHILS % (AUTO) 0.2 %; EOSINOPHILS # (AUTO) 0.1 10^3/uL (0.0-0.7); EOSINOPHILS % (AUTO) 1.6 %; HCT - HEMATOCRIT 40.8 % (42.0-52.0); HGB - HEMOGLOBIN 13.8 g/dL (14.0-18.0); LYMPHOCYTES # (AUTO) 1.8 10^3/uL (1.5-3.5); LYMPHOCYTES % (AUTO) 21.5 %; MEAN CORPUSCULAR HEMOGLOBIN 32.2 pg (27.0-31.0); MEAN CORPUSCULAR HGB CONC 33.8 g/dL (32.0-36.0); MEAN CORPUSCULAR VOLUME 95.3 fL (80.0-94.0); MEAN PLATELET VOLUME 10.6 fL (7.4-11.4); MONOCYTES # (AUTO) 0.5 10^3/uL (0.0-1.0); MONOCYTES % (AUTO) 5.8 %; NEUTROPHILS # (AUTO) 5.9 10^3/uL (1.5-6.6); NEUTROPHILS % (AUTO) 70.7 %; PLT - PLATELET COUNT 300 10^3/uL (130-450); RED BLOOD COUNT 4.28 10^6/uL (4.70-6.10); RED CELL DISTRIBUTION WIDTH 12.4 % (12.0-15.0); WHITE BLOOD COUNT 8.3 x10^3/uL (4.8-10.8)
[2023-06-13 18:46] LABS: ALBUMIN 4.2 g/dL (3.2-5.5); ALBUMIN/GLOBULIN RATIO 1.4 (1.0-2.2); ALKALINE PHOSPHATASE 79 IU/L (42-121); ALT ALANINE AMINOTRANSFERASE 23 IU/L (10-60); AST ASPARTATE AMINOTRANSFERASE 22 IU/L (10-42); BILIRUBIN,TOTAL 0.5 mg/dL (0.2-1.0); BUN - BLOOD UREA NITROGEN 9 mg/dL (6-20); CALCIUM 9.5 mg/dL (8.5-10.3); CARBON DIOXIDE - CO2 26 mmol/L (21-32); CHLORIDE 103 mmol/L (101-111); CHOL/HDL RATIO 6.5 (<5.0); CHOLESTEROL 266 mg/dL; CREATININE 0.6 mg/dL (0.6-1.3); GFR - MDRD 159 (>89); GLUCOSE 139 mg/dL (74-104); HDL CHOLESTEROL 41 mg/dL; LDL CHOLESTEROL,CALCULATED 184 mg/dL; LDL/HDL RATIO 4.5 (<3.6); POTASSIUM 4.1 mmol/L (3.5-4.5); SODIUM 137 mmol/L (135-145); TOTAL PROTEIN 7.1 g/dL (6.4-8.9); TRIGLYCERIDES 207 mg/dL (48-352); VLDL CHOLESTEROL 41 mg/dL
[2023-06-13 21:17] LABS: ESTIMATED AVERAGE GLUCOSE 186 mg/dL (70-100); HEMOGLOBIN A1c% 8.1 % (4.27-6.07)
== END 2023-06-13 13:59 | disposition home or self-care (01) ==
LOC: LAB.N 13:58
PROVIDERS: ATTEND Physician Assistant Medical
DX: D52.9 Folate deficiency anemia, unspecified (principal); E78.5 Hyperlipidemia, unspecified; E10.9 Type 1 diabetes mellitus without complications
CPT/HCPCS: 36415; 80053; 80061; 82746; 82747; 83036; 83721; 85014; 85025

== ENCOUNTER 2023-12-12 12:40 | Outpatient (CLI) | payer MEDICAID ==
[2023-12-12 18:15] LABS: ALBUMIN 4.1 g/dL (3.2-5.5); ALBUMIN/GLOBULIN RATIO 1.4 (1.0-2.2); ALKALINE PHOSPHATASE 87 IU/L (42-121); ALT ALANINE AMINOTRANSFERASE 31 IU/L (10-60); AST ASPARTATE AMINOTRANSFERASE 29 IU/L (10-42); BILIRUBIN,TOTAL 0.5 mg/dL (0.2-1.0); BUN - BLOOD UREA NITROGEN 11 mg/dL (6-20); CALCIUM 9.7 mg/dL (8.5-10.3); CARBON DIOXIDE - CO2 27 mmol/L (21-32); CHLORIDE 101 mmol/L (101-111); CHOL/HDL RATIO 6.4 (<5.0); CHOLESTEROL 223 mg/dL; CREATININE 0.7 mg/dL (0.6-1.3); GFR - MDRD 132 (>89); GLUCOSE 155 mg/dL (74-104); HDL CHOLESTEROL 35 mg/dL; LDL CHOLESTEROL,CALCULATED 147 mg/dL; LDL/HDL RATIO 4.2 (<3.6); POTASSIUM 4.1 mmol/L (3.5-4.5); SODIUM 137 mmol/L (135-145); TRIGLYCERIDES 203 mg/dL (48-352); VLDL CHOLESTEROL 41 mg/dL
[2023-12-12 21:31] LABS: ESTIMATED AVERAGE GLUCOSE 200 mg/dL (70-100); HEMOGLOBIN A1c% 8.6 % (4.27-6.07)
== END 2023-12-12 12:41 | disposition home or self-care (01) ==
LOC: LAB.N 12:40
PROVIDERS: ATTEND Physician Assistant Medical
DX: E10.9 Type 1 diabetes mellitus without complications (principal)
CPT/HCPCS: 36415; 80053; 80061; 83036; 83721

== ENCOUNTER 2024-01-03 10:47 | Emergency (ER) | payer MEDICAID | END 2024-01-03 11:45 | disposition left against medical advice (07) | LOC: ED 10:47 | DX: Z53.21 Procedure and treatment not carried out due to patient leaving prior to being seen by health care provider (principal) ==